=== PATIENT | male | born 1960 | race Caucasian/White ===

== ENCOUNTER 2021-01-24 20:43 | Inpatient (IN) | payer BC ==
[~2021-01-24] VITALS: Ht 177.8 cm; Wt 88.2 kg
[~2021-01-24 20:43] MED LIST: BENTYL 10MG CAP10 MG PO
[2021-01-24 21:09] LABS: HEMOGLOBIN 17.5 gm/dl (14.0-17.5); RED BLOOD COUNT 5.71 M/UL (4.20-5.50); WHITE BLOOD COUNT 9.9 K/UL (4.5-11.0)
[2021-01-24 21:27] LABS: BUN/CREATININE RATIO 18 (0-10)
[2021-01-25 07:03] LABS: RED BLOOD COUNT 5.49 M/UL (4.20-5.50); WHITE BLOOD COUNT 10.3 K/UL (4.5-11.0)
[2021-01-25 07:24] LABS: BUN/CREATININE RATIO 16 (0-10)
[2021-01-25] MEDS ORDERED: METOPROLOL SUCC25 MG PO (08:02)
[2021-01-25] MEDS ORDERED: SIMVASTATIN20 MG PO (08:02)
[2021-01-25] MEDS ORDERED: CENTRUM COMPLE1 EACH PO (08:22)
[2021-01-25] MEDS ORDERED: FISH OIL 1,0001 EACH PO (08:23)
[2021-01-25] MEDS ORDERED: PATADAY5 ML EYEBOTH (09:50)
[2021-01-25] MEDS ORDERED: VITAMIN D3125 MCG PO (09:51)
[2021-01-27 05:38] LABS: HEMOGLOBIN 16.3 gm/dl (14.0-17.5); RED BLOOD COUNT 5.33 M/UL (4.20-5.50)
[2021-01-27 05:42] LABS: WHITE BLOOD COUNT 7.7 K/UL (4.5-11.0)
[2021-01-27 05:56] LABS: BUN/CREATININE RATIO 22 (0-10)
[2021-01-27] MEDS ORDERED: NITROGLYCERIN0.4 MG SL (11:15)
[2021-01-27] MEDS ORDERED: ASPIRIN EC81 MG PO (11:15)
[2021-01-27] MEDS ORDERED: ATORVASTATIN CA20 MG PO (11:15)
[2021-01-27] MEDS ORDERED: CLOPIDOGREL75 MG PO (11:15)
== END 2021-01-27 12:04 | disposition home or self-care (01) | DRG 246 ==
LOC: ER1 20:43 → CDU 21:20 → CCU 01-25 06:37
PROVIDERS: Physician Assistant; ADMIT Internal Medicine Interventional Cardiology
PROC: 4A023N7 Measurement of Cardiac Sampling and Pressure, Left Heart, Percutaneous Approach (ICD-10-PCS; principal; 2021-01-24)
PROC: 027036Z Dilation of Coronary Artery, One Artery with Three Drug-eluting Intraluminal Devices, Percutaneous Approach (ICD-10-PCS; 2021-01-24)
PROC: B2161ZZ Fluoroscopy of Right and Left Heart using Low Osmolar Contrast (ICD-10-PCS; 2021-01-24)
PROC: B2151ZZ Fluoroscopy of Left Heart using Low Osmolar Contrast (ICD-10-PCS; 2021-01-24)
PROC: B41G1ZZ Fluoroscopy of Left Lower Extremity Arteries using Low Osmolar Contrast (ICD-10-PCS; 2021-01-24)
PROC: 027034Z Dilation of Coronary Artery, One Artery with Drug-eluting Intraluminal Device, Percutaneous Approach (ICD-10-PCS; 2021-01-26)
PROC: B2161ZZ Fluoroscopy of Right and Left Heart using Low Osmolar Contrast (ICD-10-PCS; 2021-01-26)
PROC: B41G1ZZ Fluoroscopy of Left Lower Extremity Arteries using Low Osmolar Contrast (ICD-10-PCS; 2021-01-26)
PROC: 4A023N7 Measurement of Cardiac Sampling and Pressure, Left Heart, Percutaneous Approach (ICD-10-PCS; 2021-01-26)
DX: I21.19 ST elevation (STEMI) myocardial infarction involving other coronary artery of inferior wall (principal); I25.10 Atherosclerotic heart disease of native coronary artery without angina pectoris; E78.5 Hyperlipidemia, unspecified; I10 Essential (primary) hypertension; I95.9 Hypotension, unspecified; Z20.822 Contact with and (suspected) exposure to COVID-19; Z82.49 Family history of ischemic heart disease and other diseases of the circulatory system
CPT/HCPCS: 36415; 71045; 80048; 80053; 82550; 82553; 84484; 85025; 85027; 85347; 85610; 85730; 93005; 99152; 99153; 99285; C1725; C1760; C1769; C1874; C1887; C9600; J0461; J1170; J1644; J2250; J2405; J3010; J3246; J7040; Q9965; Q9967; U0002